=== PATIENT | female | born 1995 | race Caucasian/White ===

== ENCOUNTER 2019-10-21 17:51 | Emergency (ER) | payer OTHER, MEDICAID, SELFPAY ==
[2019-10-21 18:00] VITALS: BP 124/79; PULSE 104; RESP 20; TEMP 36.7; O2SAT 98
--- NOTE | 2019-10-21 18:14 | ED.GENADULT ---
HPI - General Adult General Chief complaint: Abdominal Pain Stated complaint: abdominal pain Time Seen by Provider: 10/21/19 18:05 Source: patient Mode of arrival: Ambulatory Limitations: no limitations History of Present Illness HPI narrative: 24-year-old female here for evaluation of midline lower abdominal pain for the past 4 days and also vaginal discharge. She states that has been going on for the past 4 days. Her last menstrual cycle was approximately 10 days ago. No urinary symptoms. No change in bowel habits. No vaginal bleeding. Hasn't tried anything for symptoms prior to arrival Review of Systems Constitutional Constitutional: Denies fever(s) Cardiovascular Cardiovascular: Denies chest pain and Denies dyspnea Respiratory Respiratory: Denies dyspnea Gastrointestinal Gastrointestinal: Reports abdominal pain, Denies change in stool character, Denies nausea and Denies vomiting Genitourinary Genitourinary: Denies urinary frequency, Denies dysuria and Reports vaginal discharge Musculoskeletal Musculoskeletal: Denies myalgias and Denies arthralgias Integumentary/Breasts Skin/Breast: Denies lesions and Denies rash Neurologic Neurologic: Denies behavioral changes Psychiatric Psychiatric: Denies behavioral changes Hematologic/Lymphatic Hematologic/Lymphatic: Denies easy bleeding and Denies easy bruising Patient History Medical History Patient denies medical problems (Acute) Social History Smoking Status: Current every day smoker Smoking Status: Current every day smoker Exam Initial Vital Signs Initial Vital Signs: Vital Signs Temperature 98.0 F 10/21/19 18:00 Pulse Rate 104 H 10/21/19 18:00 Respiratory Rate 20 10/21/19 18:00 Blood Pressure 124/79 10/21/19 18:00 Pulse Oximetry 98 10/21/19 18:00 Const General: cooperative, comfortable and well developed [facility] Head: normal to inspection and normocephalic Resp Effort & Inspection: normal respiratory effort Cardio Rate: regular rate GI Inspection: non-distended Palpation: soft, No firm, No guarding and tender (Suprapubic) External Female Exam: no erythema and no tenderness externally Speculum Exam - Vagina: not erythematous Speculum Exam - Cervix: normal appearance of the cervix, no lesions and other (IUD strings visualized) Skin Lesions: no lesions Rashes: no rashes Neuro General: alert and awake Cognition: normal cognition Extrem General: normal to inspection and capillary refill normal Course Orders Ordered: ED Orders 10/21/19 18:32 BHAVESH Prep Stat Wet Prep Tric BV Beronica Stat Vital Signs Vital signs: Vital Signs - 8 hr 10/21/19 18:00 10/21/19 20:20 Temperature 98.0 F Pulse Rate 104 H 71 Respiratory Rate 20 16 Blood Pressure 124/79 122/72 Pulse Oximetry 98 99 Medical Decision Making Lab Data Lab results reviewed: Yes I reviewed the patient's lab results. Labs: Point of Care Testing Test Results Negative Urine Dip Bedside Urine Glucose Negative Bedside Urine Bilirubin - Negative Bedside Urine Ketone - Negative Urine Specific [place] 1.015 Bedside Urine Occult Blood - Negative Bedside Urine pH 6.5 Bedside Urine Protein - Negative Bedside Urine Urobilinogen - Negative Bedside Urine Nitrite - Negative Bedside Urine Leukocytes - Negative Esterase Point of care testing: Point of Care Testing Test Results Negative Urine Dip Bedside Urine Glucose Negative Bedside Urine Bilirubin - Negative Bedside Urine Ketone - Negative Urine Specific [place] 1.015 Bedside Urine Occult Blood - Negative Bedside Urine pH 6.5 Bedside Urine Protein - Negative Bedside Urine Urobilinogen - Negative Bedside Urine Nitrite - Negative Bedside Urine Leukocytes - Negative Esterase MDM Narrative Medical decision making narrative: test is negative, urinalysis unremarkable, BHAVESH and wet prep negative. Has a benign abdominal exam. Will hold on further workup for now. Discussed return precautions and follow-up instructions with the patient. No indication for antibiotics. She expressed understanding and agreement plan. Discharge Plan Departure Patient Disposition: Home Clinical Impression: Vaginal discharge Abdominal pain Qualifiers: Abdominal location: lower abdomen, unspecified Qualified Code(s): R10.30 - Lower abdominal pain, unspecified Discharge Date/Time: 10/21/19 20:21 Instructions: DI for Abdominal Pain-Adult Activity Restrictions/Additional Instructions: Recommend you contact your primary provider for a follow-up. Continue all of your medications. Return to the emergency department for any new or worsening symptoms.
[2019-10-21 20:20] VITALS: BP 122/72; PULSE 71; RESP 16; O2SAT 99
== END 2019-10-21 20:21 | disposition home or self-care (01) ==
PROVIDERS: Emergency Provider Emergency Medicine
DX: N89.8 Other specified noninflammatory disorders of vagina (principal); R10.30 Lower abdominal pain, unspecified
CPT/HCPCS: 81003; 81025; 87210; 87220; 99282

== ENCOUNTER → 2020-11-04 10:43 | Outpatient (CLI) | payer OTHER, MEDICAID, SELFPAY ==
--- NOTE | 2020-11-04 | DI.US.S_ITS ---
PROCEDURE: US OB >= 14 WEEKS FETUS INDICATIONS: 20 WEEK ANATOMICAL SURVEY OUTSIDE/PRIOR DATING DATA: Last menstrual period (LMP): 06/19/2020. LMP-based estimated date of delivery (LEIDA): 03/26/2021 . First dating scan (date and location): 11/04/2020 Estimated date of delivery (LEIDA) from first dating scan: 03/26/2021 . TECHNIQUE: Real-time scanning was performed of the fetus, with image documentation and biometric measurements. Endovaginal scanning: No COMPARISON: [facility] Ultrasound, US, US OB < 14 WEEKS + OB TRANSVAG, 09/10/2020, 12:56. FINDINGS: General: A single living intrauterine gestation is present. Presentation: Vertex. Placenta: Placental position is posterior , without previa. Amniotic fluid index: 10.1 cm cm, normal range is 5-24 cm. heart rate: 165 beats per minute. Maternal cervical canal: 4.6 cm long. Normal lower limit is 2.5 cm. biometrics: Biparietal diameter: 19 weeks 5 days Head circumference: 19 weeks 2 days Abdominal circumference: 19 weeks 3 days Femur length: 20 weeks 4 days Estimated gestational age from initial scan: 19 weeks 5 days Composite gestational age from present scan: 19 weeks 5 days Estimated weight and percentile: 319 g, 56 percentile Measurement variability for biometric dating: +/- 7 days from 14 weeks to 15 weeks 6 days gestation, +/- 10 days from 16 weeks to 21 weeks 6 days gestation, +/- 2 weeks from 22 weeks to 27 weeks 6 days gestation, +/- 3 weeks for 28 weeks gestation or later. weight reference: 4500 g or EFW >90/95% is considered macrosomia or large for gestational age. EFW <10% is small for gestational age. EFW 5% or less is considered intra-uterine growth restriction. Anatomic survey: Neuro: Ventricles are non-dilated at less than 10 mm. Cisterna magna is normal at 3-11 mm. Cerebellum is normal in size and morphology. Nuchal skin fold: Normal at less than 6 mm between 14-21 weeks gestational age. Face: Nose and lips, facial profile are normal. Spine: No evidence for spina bifida. Heart: 4-chambered heart is present, with normal ventricular outflow tracts. Diaphragm: Diaphragm is intact. Stomach: Left-sided stomach is present. Kidneys: No hydronephrosis. Normal is less than 5 mm in 2nd trimester, less than 7 mm in 3rd trimester. Cord: 3-vessel cord has orthotopic insertion. Bladder: Normal in size. Extremities: All 4 extremities identified. IMPRESSION: 1. Normal interval growth. 2. Normal anatomic survey. Dictated by: Jeffry MARINO Interpreted: James Sheldon MD on 11/04/2020 at 13:51 Approved by: James Sheldon M.D. on 11/04/2020 at 16:39
== END ==
PROVIDERS: Referring Provider Nurse Practitioner Obstetrics & Gynecology; Visit Provider Nurse Practitioner Obstetrics & Gynecology
DX: Z34.92 Encounter for supervision of normal pregnancy, unspecified, second trimester (principal); Z36.89 Encounter for other specified antenatal screening; Z3A.19 19 weeks gestation of pregnancy
CPT/HCPCS: 76811

== ENCOUNTER → 2020-12-29 07:04 | Outpatient (CLI) | payer OTHER, MEDICAID, SELFPAY ==
[2020-12-29 08:27] LABS: Glucose Fasting 81 mg/dL (70-100)
[2020-12-29 09:41] LABS: Glucose Tol Interpretation INTERPRETATION
--- NOTE | 2020-12-29 09:44 | DI.US.S_ITS ---
PROCEDURE: US OB LIMITED INDICATIONS: Cervical length/ LAB OUTSIDE/PRIOR DATING DATA: Last menstrual period (LMP): 06/19/20. LMP-based estimated date of delivery (LEIDA): 03/26/21 . First dating scan (date and location): 11/04/20 . Estimated date of delivery (LEIDA) from first dating scan: 03/16/21 . TECHNIQUE: Real-time scanning was performed of the fetus, with image documentation. Endovaginal scanning: Not needed COMPARISON: None. FINDINGS: A single living intrauterine gestation is present. Presentation: Breech. Placenta: Placental position is posterior left , without previa. Amniotic fluid index: 16.0 cm, normal range is 5-24 cm. heart rate: 141 beats per minute. Maternal cervical canal: 5.1 cm long. Normal lower limit is 2.5 cm. Estimated gestational age from initial scan: 27 weeks 4 days . IMPRESSION: Reported pre term labor, breech presentation, placenta is posterior in positioning, leftward. Normal amniotic fluid volume. Maternal cervical canal at this time appears normal. Dictated by: Dong Renner M.D. on 12/29/2020 at 11:24 Approved by: Dong Renner M.D. on 12/29/2020 at 11:26
[2020-12-29 10:18] LABS: Hematocrit 30.1 % (36-46); Hemoglobin 10.2 g/dL (12.0-16.0); Mean Corpuscular Hemoglobin 28.7 PG (26-34); Mean Corpuscular Volume 84.5 fL (80-100); Platelet Count 221 X10^3/uL (150-400); Red Blood Cell Count 3.56 X10^6/uL (4.0-5.2); Red Cell Distribution Width 12.9 % (11.6-14.8); White Blood Cell Count 9.1 X10^3/uL (4.5-11.0)
[2020-12-29 10:35] LABS: Glucose 2 Hour 124 mg/dL (70-140)
[2020-12-29 10:35] LABS: Glucose 1 Hour 138 mg/dL (70-170)
== END ==
PROVIDERS: Referring Provider Nurse Practitioner Obstetrics & Gynecology; Visit Provider Nurse Practitioner Obstetrics & Gynecology
DX: Z36.86 Encounter for antenatal screening for cervical length (principal); Z13.1 Encounter for screening for diabetes mellitus; Z3A.27 27 weeks gestation of pregnancy
CPT/HCPCS: 36415; 76815; 76817; 82951; 82952; 85027

== ENCOUNTER → 2021-01-26 14:05 | Outpatient (CLI) | payer OTHER, MEDICAID, SELFPAY ==
--- NOTE | 2021-01-26 14:07 | DI.US.S_ITS ---
PROCEDURE: US OB LIMITED INDICATIONS: CERVICAL LENGTH OUTSIDE/PRIOR DATING DATA: Last menstrual period (LMP): 06/19/20. LMP-based estimated date of delivery (LEIDA): 03/26/21 . First dating scan (date and location): 11/04/20 . Estimated date of delivery (LEIDA) from first dating scan: 03/26/21 . TECHNIQUE: Real-time scanning was performed of the fetus, with image documentation. Endovaginal scanning: Not needed COMPARISON: [facility], OB LIMITED, 12/29/2020, 10:00. FINDINGS: A single living intrauterine gestation is present. Presentation: Breech. Placenta: Placental position is posterior left , without previa. Amniotic fluid index: 11.9 cm, normal range is 5-24 cm. heart rate: 158 beats per minute. Maternal cervical canal: 4.3 cm long. Normal lower limit is 2.5 cm. Estimated gestational age from initial scan: 31 weeks 4 days . IMPRESSION: Single living intrauterine gestation, normal maternal cervical length of 4.3 cm. Normal amniotic fluid volume. Breech presentation. Dictated by: Dong Renner M.D. on 01/26/2021 at 14:50 Approved by: Dong Renner M.D. on 01/26/2021 at 14:52
== END ==
PROVIDERS: Referring Provider Nurse Practitioner Obstetrics & Gynecology; Visit Provider Nurse Practitioner Obstetrics & Gynecology
DX: Z36.86 Encounter for antenatal screening for cervical length (principal); Z3A.31 31 weeks gestation of pregnancy
CPT/HCPCS: 76815

== ENCOUNTER 2021-02-05 17:58 | Outpatient (CLI) | payer OTHER, MEDICAID, SELFPAY ==
--- NOTE | 2021-02-05 18:24 | DI.US.S_ITS ---
PROCEDURE: US OB LIMITED INDICATIONS: PTL OUTSIDE/PRIOR DATING DATA: Last menstrual period (LMP): 06/19/2020. LMP-based estimated date of delivery (LEIDA): 03/26/2021. First dating scan (date and location): 11/04/2020 at [facility]. Estimated date of delivery (LEIDA) from first dating scan: 03/26/2021. TECHNIQUE: Real-time scanning was performed of the fetus, with image documentation. Endovaginal scanning: Performed for better visualization of the cervix. COMPARISON: [facility], , OB LIMITED, 01/26/2021, 14:19. FINDINGS: A single living intrauterine gestation is present. Presentation: Vertex Placenta: Placental position is left posterior, without previa. Amniotic fluid index: 11.4 cm, normal range is 5-24 cm. Largest pocket is 4.5 cm. heart rate: 141 beats per minute. Maternal cervical canal: 3.9 cm long. Normal lower limit is 2.5 cm. Estimated gestational age from initial scan: 33 weeks 0 days. IMPRESSION: Single live intrauterine with vertex positioning. Cervix measures 3.9 cm in length. Amniotic fluid index 11.4 cm. Dictated by: Steven Alcantara M.D. on 02/05/2021 at 19:19 Approved by: Steven Alcantara M.D. on 02/05/2021 at 19:22
--- NOTE | 2021-02-05 18:41 | PM.OBTRLD ---
Visit Information Visit Information Date of evaluation: 02/05/21 Primary OB Provider: Maya Stauffer On-call OB Provider: Iveth Barrett Reason for Evaluation: Yes pre-term labor Comments/Additional reasons for admission: 25YO @ 33wks here for evaluation of contractions and leaking of clear fluid. Noticed leaking fluid a few hours ago and then on the hour car ride here, noticed consistent, uncomfortable contractions. Has had pelvic pain x 2-3 days, but was trying to ignore it. No VB. First was @ 35wks and second at 38wks. Vital Signs Vital Signs: BP 122/65, HR 111bpm, T 36.2C Temporal PFSH Medical History (Updated 02/05/21 @ 19:38 by Maya Stauffer CNM) Patient denies medical problems Surgical History (Updated 02/05/21 @ 18:50 by Maya Stauffer CNM) History of appendectomy Social History Smoking Status: Current every day smoker Review of Systems Review of Systems ROS: Yes All systems reviewed with the patient and are negative except as otherwise documented Exam Vital Signs (past 8 hours): see above Presentation: vertex Objective Imaging CL US: My impression: Vertex CL-3.9cm, no funneling. Last CL @ 31wks was 4.3cm Radiologist's impression: see Report Evaluation Evaluation Baseline heart rate: 140 Variability: Moderate (11-25) monitor accelerations: Present Monitor Decelerations: Absent Contraction Frequency (minutes): 2 Uterine Contraction Intensity: Mild Status: Category l Cervical dilation (cm): 0 Cervical effacement (%): 20 Non-invasive Membranes Rupture Test: negative Diagnosis, Plan/Disposition Final Diagnosis (1) History of delivery, currently in third trimester: Status: Acute (2) contractions: Status: Acute Problem details: Mild, regular contractions spaced with nifedipine x3 doses. Given stable cervical length and negative fFN, there is low concern for labor tonight. D/C to home w/ routine labor precautions. Consulted who is in agreement w/ POC. (3) Encounter for suspected problem with amniotic cavity and membrane not found: Status: Acute Problem details: Reassurance given of no PPROM. D/C to home w/ routine labor/ROM precautions.
[2021-02-05] MEDS: NIFEdipine 10 MG CAPSULE PO ×3 (18:43→19:22)
[2021-02-05 19:08] LABS: Fetal Fibronectin Negative
== END 2021-02-05 19:55 | disposition home or self-care (01) ==
LOC: LABOR 18:07 → OB 02-06 09:31
PROVIDERS: Referring Provider Nurse Practitioner Obstetrics & Gynecology; Visit Provider Nurse Practitioner Obstetrics & Gynecology
DX: Z03.71 Encounter for suspected problem with amniotic cavity and membrane ruled out (principal); O47.03 False labor before 37 completed weeks of gestation, third trimester; Z3A.33 33 weeks gestation of pregnancy
CPT/HCPCS: 59025; 59050; 76815; 82731; 84112; G0378; G0379

== ENCOUNTER 2021-02-15 18:50 | Observation (INO) | payer OTHER, MEDICAID, SELFPAY ==
--- NOTE | 2021-02-15 19:33 | PM.OBTRLD ---
Visit Information Visit Information Date of evaluation: 02/15/21 Primary OB Provider: Mirtha Lockhart On-call OB Provider: Maya Stauffer Reason for Evaluation: Yes pre-term labor Comments/Additional reasons for admission: 25YO @ 34wks 3 days, based on LMP concordant w/ 10wk US, here for evaluation of contractions and leaking of clear fluid. Noticed leaking fluid a few hours ago and then on the hour car ride here, noticed stronger consistent, uncomfortable contractions. Had a negative fFN w/ stable cervical length on 02/05/21 during evaluation for the same. Has nifedipine XR at home, but hasn't taken it since last Tuesday. Has been feeling flushed w/ no appetite today, minimal intake. No VB. First was @ 35wks and second at 38wks. Vital Signs Vital Signs: BP 121/70, HR 126, RR 18/min, T 98.3F Temporal PFSH Medical History Patient denies medical problems Surgical History History of appendectomy Social History Smoking Status: Current every day smoker Review of Systems Review of Systems ROS: Yes All systems reviewed with the patient and are negative except as otherwise documented Exam Vital Signs (past 8 hours): see above Objective Labs Labs: GBS PCR-negative Evaluation Evaluation Baseline heart rate: 140 Variability: Moderate (11-25) monitor accelerations: Present Monitor Decelerations: Absent Contraction Frequency (minutes): 2 Uterine Contraction Intensity: Mild Category of Tracing: Reactive Cervical dilation (cm): 1 Cervical effacement (%): 50 station: -3 Non-invasive Membranes Rupture Test: negative Comments: 1L LR IVFB given After 2 hours, CE is unchanged and contractions have spaced. Diagnosis, Plan/Disposition Final Diagnosis (1) contractions: Status: Acute Problem details: Mild, regular contractions spaced with IV fluids. Given no change in cervical exam after 2 hours, there is low concern for labor tonight. D/C to home w/ routine labor precautions. (2) Encounter for suspected problem with amniotic cavity and membrane not found: Status: Acute Problem details: Reassurance given of no PPROM. D/C to home w/ routine labor/ROM precautions. Plan/Disposition Plan: Follow-up in clinic this week. OB Disposition: home
[2021-02-15] MEDS: LACTATED RINGERS 1,000 ML 500 ML IV (20:50)
[2021-02-15 21:00] LABS: Strep Grp B PCR NEG for Grp B Strep
== END 2021-02-15 21:54 | disposition home or self-care (01) ==
PROVIDERS: Admitting Provider Nurse Practitioner Obstetrics & Gynecology; Referring Provider Nurse Practitioner Obstetrics & Gynecology; Visit Provider Nurse Practitioner Obstetrics & Gynecology
DX: Z03.71 Encounter for suspected problem with amniotic cavity and membrane ruled out (principal); O47.03 False labor before 37 completed weeks of gestation, third trimester; Z3A.34 34 weeks gestation of pregnancy
CPT/HCPCS: 59025; 59050; 84112; 87081; 87653; 96360; G0378; G0379

== ENCOUNTER → 2021-02-17 16:37 | Outpatient (ROUT) | payer OTHER, MEDICAID, SELFPAY | PROVIDERS: Visit Provider Nurse Practitioner Obstetrics & Gynecology | DX: Z34.93 Encounter for supervision of normal pregnancy, unspecified, third trimester (principal); Z3A.34 34 weeks gestation of pregnancy; Z36.85 Encounter for antenatal screening for Streptococcus B | CPT/HCPCS: 87081 ==

== ENCOUNTER 2021-02-24 18:18 | Outpatient (CLI) | payer OTHER, MEDICAID, SELFPAY ==
--- NOTE | 2021-02-24 18:33 | P.TNLD_ITS ---
Visit Information Visit Information Date of evaluation: 02/24/21 Primary OB Provider: Maya Stauffer On-call OB Provider: Iveth Barrett Reason for Evaluation: Yes rule out labor Comments/Additional reasons for admission: 25YO @ 35wks 5days, based on LMP and concordant w/ 10wk US, here for evaluation of contractions, pelvic pressure and pain. Has been stewart all day w/ contractions that became Q2 minutes and occasionally strong. Contractions spaced on the car ride here, but strength is the same. No VB or LOF, though she has has a lot of mucus discharge. Not sleeping well and incredibly nauseous today. Nausea is only mildly improved w/ ondansetron. Extremely frustrated with contractions and hoping to stay and have a baby or encourage labor. Hx of 35wk (P1) and 38 wk(P2) births. [facility] Medical History Patient denies medical problems Surgical History History of appendectomy Social History Smoking Status: Current every day smoker Review of Systems Review of Systems ROS: Yes All systems reviewed with the patient and are negative except as otherwise documented Exam Presentation: vertex Other: by Demetrius's and CE Evaluation Evaluation Baseline heart rate: 125 Variability: Moderate (11-25) Monitor Decelerations: Absent Uterine Contraction Intensity: Mild Cervical dilation (cm): 2 Cervical effacement (%): 75 station: -2 Comments: Initial CE unchanged from last clinic exam on 02/17/21 CE @ 1930 2/75%/-2 Diagnosis, Plan/Disposition Plan/Disposition Plan: Recommended 2 hour observation, but patient declined. Counseled on late status and that it is not medically appropriate to help labor along at this time. Encouraged her to call or come back if things intensify in any way. OB Disposition: home
== END 2021-02-24 19:48 | disposition home or self-care (01) ==
LOC: LABOR 19:04 → OB 02-25 07:18
PROVIDERS: Referring Provider Nurse Practitioner Obstetrics & Gynecology; Visit Provider Nurse Practitioner Obstetrics & Gynecology
DX: O47.03 False labor before 37 completed weeks of gestation, third trimester (principal); Z3A.35 35 weeks gestation of pregnancy
CPT/HCPCS: 59025; 59050; G0378; G0379

== ENCOUNTER 2021-02-27 15:59 | Outpatient (CLI) | payer OTHER, MEDICAID, SELFPAY ==
--- NOTE | 2021-02-27 16:25 | PM.OBTRLD ---
Visit Information Visit Information Date of evaluation: 02/27/21 Primary OB Provider: Maya Stauffer On-call OB Provider: Vilma Elizondo Reason for Evaluation: Yes other Comments/Additional reasons for admission: 25YO @ 36wks 1day, based on LMP and concordant w/ 10wk US, here for evaluation of nausea, suspected dehydration and constipation w/ continued contractions. Lots of FM and Q2-3 minute mild contractions. No VB or LOF. Performed a home enema before coming in and was able to pass a small amount of stool and doesn't feel as constipated as before. Has been evaluates several times, starting at 33wks for contractions. Last cervical exam on 02/24/21 was 2/75%/-3. Vital Signs Vital Signs: BP 112/70, HR 114bpm, T 98.0F Temporal PFSH Medical History Patient denies medical problems Surgical History History of appendectomy Social History (Updated 02/27/21 @ 17:08 by Maya Stauffer CNM) marital status: unmarried,living together number of children: 2 household members: significant other and children lives independently: Yes caregiver/support person: No housing: house occupational status: employed Smoking Status: Former smoker alcohol intake: former substance use type: does not use Review of Systems Review of Systems ROS: Yes All systems reviewed with the patient and are negative except as otherwise documented Exam Vital Signs (past 8 hours): see above Resp Effort & Inspection: normal respiratory effort Auscultation: clear to auscultation bilaterally Cardio Rate: tachycardic Rhythm: regular rhythm Heart Sounds: S1 normal and S2 normal Presentation: vertex Evaluation Evaluation Baseline heart rate: 140 Variability: Moderate (11-25) monitor accelerations: Present Monitor Decelerations: Absent Contraction Frequency (minutes): 6 Uterine Contraction Intensity: Mild Category of Tracing: Reactive Status: Category l Cervical dilation (cm): 2 Cervical effacement (%): 75 station: -3 Diagnosis, Plan/Disposition Final Diagnosis (1) contractions: Status: Acute Problem details: Mild, regular contractions spaced with rest and IV fluids. Given no change in cervical exam since last exam, there is low concern for labor tonight. D/C to home w/ routine labor precautions. (2) Dehydration during : Status: Acute Problem details: tachycardia and urine output improved w/ /IV fluids. Discharge to home w/ recommendations to increase PO fluid and use medication for nausea PRN. D/C/ to home. Plan/Disposition OB Disposition: home
[2021-02-27 16:59] LABS: Appearance Urine UA CLEAR; Bilirubin Urine UA NEGATIVE (NEGATIVE); Color Urine UA YELLOW; Glucose Urine UA NEGATIVE (Negative); Ketones Urine UA 1+ (NEGATIVE); Leukocyte Esterase Urine UA TRACE (NEGATIVE); Nitrite Urine UA NEGATIVE (Negative); Occult Blood Urine UA 3+ (Negative); Protein Urine UA 2+ (Negative); Urobilinogen Urine UA 0.2 E.U./dL (0.2)
[2021-02-27] MEDS: LACTATED RINGERS 1,000 ML 1000 ML IV (17:00)
[2021-02-27 17:24] LABS: Bacteria Urine Many (>30); Hyaline Casts Urine 1-5/LPF; RBC Urine 5-10/HPF (0-5/HPF); Renal Epithelial Cells Urine 0-1/HPF (0-1/HPF); Squamous Epithelial Cell Urine 1-5 /HPF (0-5/HPF); Transitional Epi Cells Urine 0-1/HPF (0-5/HPF); WBC Urine 5-10/HPF (0-5/HPF); pH Urine UA 6.5 (4.5-8.0)
[2021-02-27 17:25] LABS: Culture Indicated Urine Specimen Cultured; Mucus Urine 1+ (Negative)
== END 2021-02-27 18:20 | disposition home or self-care (01) ==
LOC: LABOR 17:01 → OB 03-02 08:06
PROVIDERS: Referring Provider Nurse Practitioner Obstetrics & Gynecology; Visit Provider Nurse Practitioner Obstetrics & Gynecology
DX: O47.03 False labor before 37 completed weeks of gestation, third trimester (principal); O26.893 Other specified pregnancy related conditions, third trimester; E86.0 Dehydration; Z3A.36 36 weeks gestation of pregnancy
CPT/HCPCS: 81003; 81015; 87086; G0378; G0379

== ENCOUNTER 2021-03-10 19:49 | Outpatient (CLI) | payer OTHER, MEDICAID, SELFPAY ==
--- NOTE | 2021-03-10 20:01 | PM.OBTRLD ---
Visit Information Visit Information Date of evaluation: 03/10/21 Primary OB Provider: Maya Stauffer On-call OB Provider: Kenton Salazar Reason for Evaluation: Yes rule out labor Comments/Additional reasons for admission: 25YO @ 37wks 5days, based on LMP and concordant w/ 10wk US, here for evaluation of regular contractions x several hours w/ new onset LLQ pain that worsens w/ movement and contractions and subsides between them. Lots of FM and Q4-5 minute mild contractions. No VB or LOF. PFSH Medical History Patient denies medical problems Surgical History History of appendectomy Social History marital status: unmarried,living together number of children: 2 household members: significant other and children lives independently: Yes caregiver/support person: No housing: house occupational status: employed Smoking Status: Former smoker alcohol intake: former substance use type: does not use Review of Systems Review of Systems ROS: Yes All systems reviewed with the patient and are negative except as otherwise documented Exam Vital Signs (past 8 hours): BP 117/65, HR 120bpm, T 36.6C Temporal Presentation: vertex Evaluation Evaluation Baseline heart rate: 155 Variability: Moderate (11-25) monitor accelerations: Present Monitor Decelerations: Absent Uterine Contraction Intensity: Mild Status: Category l Cervical dilation (cm): 3 Cervical effacement (%): 50 station: -3 Diagnosis, Plan/Disposition Final Diagnosis (1) False labor after 37 completed weeks of gestation: Status: Acute Problem details: Contraction spaced to occasional only over 1 hour of monitoring. Given minimal contraction pattern, comfort measures discussed and pt discharge to home w/ routine precautions. Elective 39wk IOL confirmed for 03/19/21. Encouragement and emotional support given.
[2021-03-10] MEDS: CALCIUM CARBONATE 500 MG TAB 1000 MG PO (20:51)
== END 2021-03-10 21:10 | disposition home or self-care (01) ==
LOC: OB 03-11 07:39
PROVIDERS: Referring Provider Nurse Practitioner Obstetrics & Gynecology; Visit Provider Nurse Practitioner Obstetrics & Gynecology
DX: O47.1 False labor at or after 37 completed weeks of gestation (principal); Z3A.37 37 weeks gestation of pregnancy
CPT/HCPCS: 59025; G0378; G0379

== ENCOUNTER 2021-03-14 18:06 | Inpatient (IN) | payer OTHER, MEDICAID, SELFPAY ==
--- NOTE | 2021-03-14 18:10 | PM.OBHP.1 ---
OB HPI Date/Time Date of admission: 03/14/21 Date Patient Seen: 03/14/21 Time Patient Seen: 18:10 History of Present Condition Chief complaint: Eval of Labor : 3 Para: 2 Estimated Date of Delivery: 03/26/21 Estimated Gestational Age (weeks): 38.2 Narrative: Alyson Kaiser is a 26 year old female @[id number] by LMP and 10wk US who presents for evaluation of labor. Has been feeling regular contractions since 3pm that have gotten progressively stronger. No VB or LOF. Desires epidural. Also c/o knee pain and desires Tylenol now. Lots of FM. Full PN care w/ CNM. complictaed by anemia and contractions since 33wks. CE was 3cm in clinic yesterday. FOB present and supportive. History of Present care: good care, initiated at week # (10) and number of visits Dating criteria: LMP confirmed by 1st trimester US Ultrasounds: normal mid trimester US Obstetrical complications: none Medical complications: none Preadmission Labs Blood type: O (+) positive -: Antibody screen: negative, GBS status: negative, HBsAG: negative, HIV: negative and RPR/VDLR: negative -: Chlamydia screen: not detected and Gonorrhea screen: not detected -: Rubella: immune HCAB: negative Cell-free DNA: Negative/female Narrative: 2hr gtt: 81/138/124 Prior (ies) History: 04/28/2017- NSVB @ 59ssq5d, 5#10oz, male, epidural, 1st degree 12/24/2018- NSVB @ 38wks, 6#13oz, female, epidural, partial abruption, delayed PPH w/ D&C Evaluation Evaluation Baseline heart rate: 140 Variability: Moderate (11-25) monitor accelerations: Present Monitor Decelerations: Absent Contraction Frequency (minutes): 3 Uterine Contraction Intensity: Moderate Status: Category l Cervical dilation (cm): 4 Cervical effacement (%): 75 station: -2 PFSH Medical History Patient denies medical problems Surgical History History of appendectomy Social History marital status: unmarried,living together number of children: 2 household members: significant other and children lives independently: Yes caregiver/support person: No housing: house occupational status: employed Smoking Status: Former smoker alcohol intake: former substance use type: does not use Meds Home Medications and Allergies Home Medications Medication Instructions Recorded Confirmed Type No Known Home Medications 03/10/21 03/10/21 History Allergies Allergy/AdvReac Type Severity Reaction Status Date / Time No Known Drug Allergies Allergy Verified 03/10/21 20:04 Review of Systems Review of Systems ROS: Yes All systems reviewed with the patient and are negative except as otherwise documented Exam Vital Signs (past 8 hours): Chest Chest: normal inspection of the chest Resp Effort & Inspection: normal respiratory effort Auscultation: clear to auscultation bilaterally Cardio Rate: regular rate Rhythm: regular rhythm Heart Sounds: S1 normal and S2 normal Presentation: vertex Assessment and Plan Assessment and Plan Assessment and Plan narrative: A: Term active labor Anemia Increased risk of PPH No indication for GBS prophylaxis Cat I FHR P: Admit, routine orders w/ epidural HEYDI. Labor support PRN. Reassess after epidural.
[2021-03-14 19:22] VITALS: BP 123/79
[2021-03-14] MEDS: ACETAMINOPHEN 325 MG TABLET 975 MG PO (19:23)
[2021-03-14 19:33] LABS: Add Manual Diff / Slide Review NO; Basophils Absolute Auto 100 /uL (0-100); Eosinophils Absolute Auto 100 /uL (0-450); Eosinophils Percent Auto 0.5 % (2-4); Hematocrit 34.1 % (36-46); Hemoglobin 11.1 g/dL (12.0-16.0); Lymphocytes Absolute Auto 2200 /uL (1100-4500); Lymphocytes Percent Auto 20.2 % (25-40); Mean Corpuscular HGB Conc 32.5 % (30-36); Mean Corpuscular Hemoglobin 24.6 PG (26-34); Mean Corpuscular Volume 75.5 fL (80-100); Monocytes Absolute Auto 700 /uL (0-900); Monocytes Percent Auto 6.7 % (3-14); Neutrophils Absolute Auto 7700 /uL (1500-7000); Neutrophils Percent Auto 71.6 % (50-75); Platelet Count 236 X10^3/uL (150-400); Red Blood Cell Count 4.52 X10^6/uL (4.0-5.2); Red Cell Distribution Width 15.2 % (11.6-14.8); White Blood Cell Count 10.8 X10^3/uL (4.5-11.0)
[2021-03-14 20:03] LABS: COVID19 - ADMIT (NP swab/PCR) Negative (Negative)
[2021-03-14] MEDS: LACTATED RINGERS 1,000 ML 100 ML IV (21:45)
[2021-03-14] MEDS: CALCIUM CARBONATE 500 MG TAB 1000 MG PO (22:43)
[2021-03-14] MEDS: OXYTOCIN PREMIX 30 UNIT/500 ML PLAST..BAG IV (22:56)
--- NOTE | 2021-03-14 22:56 | PM.OBPNLAB ---
Date/Time Date Patient Seen: 03/14/21 Time Patient Seen: 22:56 Pain Control Pain control: epidural Comments: Minimal pain relief w/ 1st epidural placement around 1939. Epidural was replaced at 2139 and Alyson now has good pain relief. Pelvic Exam Dilation (cm): 6 Effacement (%): 80 station: -2 Amniotic membrane status: Leaking Comments: AROM for moderate clear fluid @ 1999. Contractions Contractions on admission: regular Contraction frequency (min): 3 Contraction duration (min): 1 Contraction pattern: Regular Contraction intensity: Moderate Status status: Category l Heart Rate Baseline: 125 Monitor Accelerations: Present Monitor Decelerations: Absent Monitor Variability: Moderate Assessment and Plan Assessment: active labor Plan: begin patient augmentation Comments: Pitocin, per protocol. Reassess in 4 hours or sooner, PRN.
[2021-03-15] MEDS: LACTATED RINGERS 1,000 ML 100 ML IV (01:16)
[2021-03-15] MEDS: miSOPROStoL 200 MCG TABLET 400 MCG SL (01:22)
--- NOTE | 2021-03-15 01:27 | PM.OBPRVD ---
Events: Labor Augmentation Labor & Delivery Delivery date: 03/15/21 Intrapartal Events: None Delivery augmentation: rupture of membranes and pitocin Delivery monitor: external FHT and external uterine Route of delivery: L&D Laceration Description: None Estimated blood loss (mL): 300 Anesthesia Type: Epidural Narrative: Called by RN @ 0036 for patient report of increasing rectal pressure,. Alyson was checked and found to be C/C/+2. Alyson pushed effectively and was coached only to slow descent. NSVB of a vigorous baby girl in BHAVESH position w/ a single loose nuchal cord reduced on the perineum. No additional maneuvers were needed for delivery of the shoulders. De Lancey was placed on maternal abdomen for drying and skin to skin. After 45 seconds of delayed cord clamping, the cord was double clamped by CNM and cut by FOB. Remaining 30 units of pitocin in 500mL LR was increased to 300mL/hr for AMTSL. Apgars 9/9. Cord traction and fundal massage led to assisted, Cadet delivery of an apparently intact, bilobed placenta, membranes and 3VC. Fundus immediately firm and bleeding minimal. Vagina and perineum inspected and intact. Initial QBL 300mL. Shortly after leaving the room, the RN notified CNM of heavy vaginal bleeding. Fundus was firm and bleeding again minimal, but an additional QBL of 250mL saturated the pads. Misoprostil 400mcg SL was given. Total QBL 550mL. Mother and baby as I left the room. [place]y Baby 1: Infant gender: Female Presentation: vertex Position: Left Occiput Anterior Placenta delivery description: Spontaneous Cord Vessel Description: 3 Vessels, Nuchal Cord and Loose score (1 min): 9 score (5 min): 9 weight: 3.4 kg Plan for aftercare: Routine care
[2021-03-15] MEDS: TRANEXAMIC ACID 1,000 MG in SODIUM CHLORIDE 0.9% 100 ML 200 ML IV (01:58)
[2021-03-15] MEDS: KETOROLAC 30 MG/ML VIAL IV (02:30)
[2021-03-15] MEDS: ACETAMINOPHEN 325 MG TABLET 650 MG PO ×2 (05:40→16:11)
[2021-03-15] MEDS: IBUPROFEN 600 MG TABLET PO ×2 (10:00→16:11)
[2021-03-15 16:37] VITALS: BP 123/79; PULSE 90; RESP 18; TEMP 36.7
--- NOTE | 2021-03-15 17:10 | PM.OBDS.1 ---
Discharge Providers Provider Date of admission: 03/14/21 18:06 Discharge Date: 03/15/21 Consults: 03/16/21 01:25 Consult to Section Hand Helper Routine Comment: Discharge provider: Maya Stauffer CNM Summary Discharge Diagnosis (1) Encounter for full-term uncomplicated delivery: Status: Acute Problem Details: Patient voiding and ambulating independently. Tolerating general diet. Pain well controlled w/ PO medications. Has decided to formula feed which she did with her previous 2 children. Lochia scant, no clots. Eager for discharge to home. Time Spent with Patient Time attestation: Total time spent providing and/or coordinating discharge services: Objective Labs Result Diagrams: 03/14/21 18:15 Labs: Laboratory Results - last 24 hr 03/14/21 03/14/21 03/14/21 18:15 18:15 18:15 WBC 10.8 RBC 4.52 Hgb 11.1 L Hct 34.1 L MCV 75.5 L MCH 24.6 L MCHC 32.5 RDW 15.2 H Plt Count 236 Neut % (Auto) 71.6 Lymph % (Auto) 20.2 L [place] % (Auto) 6.7 Eos % (Auto) 0.5 L Baso % (Auto) 1.0 Neut # (Auto) 7700 H Lymph # (Auto) 2200 [place] # (Auto) 700 Eos # (Auto) 100 Baso # (Auto) 100 SARS-CoV-2 (PCR) Negative Blood Type O Positive Antibody Screen Negative Exam Vital Signs (past 8 hours): - 03/15/21 16:37 Temperature 98.1 F Pulse Rate 90 Respiratory Rate 18 Blood Pressure 123/79 Other: Fundud firm @ U, lochia small, no clots, minimal edema, perineum intact Discharge Plan Discharge Plan Patient Disposition: Home Discharge orders & Medications Prescriptions: New ibuprofen 600 mg Tablet 600 mg PO Q6HR PRN (Reason: Pain, Mild (1-3)) 14 Days Qty: 60 RF: 0 acetaminophen 325 mg Tablet 650 mg PO Q6HR PRN (Reason: Pain, Mild (1-3)) 14 Days Qty: 60 RF: 0 No Action No Known Home Medications RF: 0 Medication counseling provided by Pharmacist: No Follow up/Referrals: Maya Stauffer CNM [[facility]] - (Follow-up 03/28 @ 1000 by Telehealth Follow-up 04/27 @ 1000 in office) Diet/Activity/Treatments Diet: Regular Activity: pelvic rest x 6 weeks Skin/Wound/Dressing Care Report to your healthcare provider any signs of infection, such as:: chills, fever, increased pain, unusual drainage and unusual redness Visit Report/Discharge Packet Stand Alone Forms: Discharge: Care
== END 2021-03-15 21:06 | disposition home or self-care (01) | DRG 560 ==
PROVIDERS: Admitting Provider Nurse Practitioner Obstetrics & Gynecology; Referring Provider Nurse Practitioner Obstetrics & Gynecology; Visit Provider Nurse Practitioner Obstetrics & Gynecology
DX: O99.02 Anemia complicating childbirth (principal); D64.9 Anemia, unspecified; O69.81X0 Labor and delivery complicated by cord around neck, without compression, not applicable or unspecified; Z3A.38 38 weeks gestation of pregnancy; Z37.0 Single live birth; Z20.822 Contact with and (suspected) exposure to COVID-19
CPT/HCPCS: 01967; 36415; 59050; 85025; 86850; 86900; 86901; 87635; C9803; G0379; J1885; J2590; S0191

== ENCOUNTER → 2021-04-30 12:46 | Outpatient (CLI) | payer OTHER, MEDICAID, SELFPAY ==
--- NOTE | 2021-04-30 | DI.US.S_ITS ---
PROCEDURE: US PELVIC COMPLETE INDICATIONS: 6 WEEKS POST ; HEAVY BLEEDING TECHNIQUE: Real-time scanning was performed of the pelvic organs, with image documentation. Additional endovaginal scanning was necessary due to incomplete visualization of the adnexal and endometrial structures by transabdominal scanning. COMPARISON: [facility], , [facility], 02/05/2021, 18:59. FINDINGS: Uterus: Uterus is normal in size at 10.0 x 5.9 x 8.0 cm. The endometrium measures 17.4 mm in combined thickness. There is a 2.9 x 1.7 x 2.2 cm irregular hyperechoic masslike area in the fundus of the endometrial cavity, demonstrating the vascularity. Ovaries: Right ovary measures 2.8 x 1.0 x 1.0 cm. Left ovary measures 2.7 x 1.0 x 1.8 cm. Ovaries are normal in echotexture. Other: No pathologic free abdominal or pelvic fluid. IMPRESSION: 1. There is a 2.9 x 1.7 x 2.2 cm irregular hyperechoic masslike area in the fundus of the endometrial cavity, which demonstrates no vascularity on Doppler ultrasound. Differential diagnosis include a clot versus retained products of conception. 2. Endometrium is thickened measuring 17.4 mm consistent with endometrial hyperplasia. The result was discussed with Maya Salgado. Dictated by: Johana Ogden M.D. on 04/30/2021 at 14:02 Approved by: Johana Ogden M.D. on 04/30/2021 at 14:36
== END ==
PROVIDERS: Referring Provider Nurse Practitioner Obstetrics & Gynecology; Visit Provider Nurse Practitioner Obstetrics & Gynecology
DX: O72.2 Delayed and secondary postpartum hemorrhage (principal); R93.89 Abnormal findings on diagnostic imaging of other specified body structures
CPT/HCPCS: 76830; 76856

== ENCOUNTER 2021-05-01 14:26 | Observation (INO) | payer OTHER, MEDICAID, SELFPAY ==
[2021-05-01] VITALS (7 sets, daily range): BP systolic 104–118; BP diastolic 64–83; PULSE 49–86; RESP 12–16; TEMP 36.4–37; O2SAT 99–100; BMI 28.1
--- NOTE | 2021-05-01 | PATH_ITS ---
[facility] Accession Number: [id number] . 01 Material submitted: . uterus - INTRAUTERINE CONTENTS . 02 Diagnosis: Intrauterine Contents: Products of conception with degenerative features. Background disordered proliferative endometrium. [facility] 05/06/2021 1551 Local . 02 Electronically signed: . Virginia Mirza MD, Pathologist NPI- [id number] . 01 Gross description: . The specimen is received in formalin, labeled intrauterine contents, and consists of multiple aburto-pink to red-brown fragments of soft tissue and clotted blood measuring 5.5 x 4.5 x 2.0 cm in aggregate. The specimen is entirely submitted in in cassettes A1-A6. ([id number]) /[facility] 05/02/2021 1349 Local . 02 Pathologist provided ICD-10: O02.1 . 02 CPT . 937011 Performed at: 01 [facility] Cytology [address] [facility], [place], [place] [id number] MD Maxwell Roche MD Phone: [phone] Performed at: 02 [facility] [address] [place], [place] [id number] MD Jacque Lane MD Phone: [phone]
[2021-05-01 15:24] LABS: Add Manual Diff / Slide Review NO; Basophils Absolute Auto 100 /uL (0-100); Basophils Percent Auto 1.2 % (0-2); Eosinophils Absolute Auto 100 /uL (0-450); Eosinophils Percent Auto 1.8 % (2-4); Hematocrit 35.9 % (36-46); Hemoglobin 11.6 g/dL (12.0-16.0); Lymphocytes Absolute Auto 2700 /uL (1100-4500); Mean Corpuscular HGB Conc 32.3 % (30-36); Mean Corpuscular Hemoglobin 24.7 PG (26-34); Mean Corpuscular Volume 76.6 fL (80-100); Monocytes Absolute Auto 400 /uL (0-900); Monocytes Percent Auto 5.2 % (3-14); Neutrophils Absolute Auto 5000 /uL (1500-7000); Neutrophils Percent Auto 59.8 % (50-75); Platelet Count 301 X10^3/uL (150-400); Red Blood Cell Count 4.68 X10^6/uL (4.0-5.2); Red Cell Distribution Width 18.9 % (11.6-14.8); White Blood Cell Count 8.3 X10^3/uL (4.5-11.0)
--- NOTE | 2021-05-01 15:25 | ED_ITS ---
HPI - Female Genitourinary General Chief complaint: Vaginal Bleeding Stated complaint: needs d&c Time Seen by Provider: 05/01/21 14:41 Source: patient Mode of arrival: Ambulatory Limitations: no limitations History of Present Illness HPI Narrative: 26-year-old female who delivered a healthy child vaginally 03/15/21 and has had ongoing heavy vaginal bleeding ever since. She reports bleeding through a super tampon every hour for quite some time. She is fatigued and generally weak but denies any specific dizziness or lightheadedness. She takes no blood thinners. She has no pain and denies any fever or chills. She was sent here by her call center assistant in preparation for a D&C. She last had any solids at about 8:00 a.m. this morning and some clear liquids at about 2:30 p.m. Related Data Allergies Allergy/AdvReac Type Severity Reaction Status Date / Time adhesive tape AdvReac Intermediate Hives Verified 05/01/21 14:47 Review of Systems Review of Systems Narrative: GENERAL: See HPI HEENT: Denies sinus pain, ear pain, sore throat, difficulty swallowing, dizziness. RESPIRATORY: Denies dyspnea, cough, wheezing, hemoptysis, sputum. CARDIOVASCULAR: Denies chest pain, palpitations, orthopnea, edema, GASTROINTESTINAL: Denies nausea, vomiting, abdominal pain, diarrhea, constipation, melena. : See HPI MUSCULOSKELETAL: denies weakness, joint pain, or bony pain SKIN: Denies rash, skin lesions, or other NEUROLOGIC: Denies weakness, headache, numbness, change in speech, confusion, seizures, incoordination. PSYCHIATRIC: No concerning psychosocial issues. 12 point review of systems is negative except for those stated above Patient History Medical History Patient denies medical problems Surgical History History of appendectomy alcohol intake frequency: holidays/special occasions only Substance Use Type: does not use Exam Narrative Exam Narrative: GEN: AOx3 and in mild distress EYES: Pupils are equal, round, and reactive to light and accommodation. Extraoccular muscles are intact bilaterally. There is no subconjunctival hemorrhage or exudate. CHEST: Lungs are clear to auscultation bilaterally and free of wheezes, rales, or rhonchi. Heart rate is regular rhythm, there are no murmurs, clicks, rubs, or gallops. There is no chest wall tenderness. ABD: Abdomen is soft and nontender. There is no guarding or rebound. Bowel sounds are normal in all 4 quadrants. There is no mass or organomegaly. EXT: Full painless ROM of all extremities with no loss of sensation or strength. SKIN: Warm, pink, and dry. No erythema or rash Initial Vital Signs Initial Vital Signs: Vital Signs Temperature 98.2 F 05/01/21 14:43 Pulse Rate 86 05/01/21 14:43 Respiratory Rate 16 05/01/21 14:43 Blood Pressure 111/70 05/01/21 14:43 Pulse Oximetry 100 05/01/21 14:43 Course Orders Ordered: ED Orders 05/01/21 15:07 COVID19 - ADMIT (LEATHER POLISHER swab/PCR) Stat 05/01/21 15:15 Basic Metabolic Panel Stat Complete Blood Count AUTO DIFF Stat Type and Screen Stat Consultations Consultation #1: Dr. Barrett is calling the OR crew in preparation for a D&C this evening Vital Signs Vital signs: Vital Signs - 8 hr 05/01/21 14:43 Temperature 98.2 F Pulse Rate 86 Respiratory Rate 16 Blood Pressure 111/70 Pulse Oximetry 100 MDM - Female Genitourinary Lab Data Result diagrams: 05/01/21 15:15 05/01/21 15:15 Labs: Lab Results 05/01/21 05/01/21 Range/Units 15:15 15:15 WBC 8.3 (4.5-11.0) X10^3/uL RBC 4.68 (4.0-5.2) X10^6/uL Hgb 11.6 L (12.0-16.0) g/dL Hct 35.9 L (36-46) % MCV 76.6 L (80-100) fL MCH 24.7 L (26-34) PG MCHC 32.3 (30-36) % RDW 18.9 H (11.6-14.8) % Plt Count 301 (150-400) X10^3/uL Neut % (Auto) 59.8 (50-75) % Lymph % (Auto) 32.0 (25-40) % [place] % (Auto) 5.2 (3-14) % Eos % (Auto) 1.8 L (2-4) % Baso % (Auto) 1.2 (0-2) % Neut # (Auto) 5000 (5725-3249) /uL Lymph # (Auto) 2700 (3829-3626) /uL [place] # (Auto) 400 (0-900) /uL Eos # (Auto) 100 (0-450) /uL Baso # (Auto) 100 (0-100) /uL Sodium 139 (137-145) mmol/L Potassium 4.0 (3.4-5.1) mmol/L Chloride 106 (98-107) mmol/L Carbon Dioxide 25 (22-32) mmol/L BUN 16 (7-17) mg/dL Creatinine 0.80 (0.52-1.04) mg/dL Estimated GFR > 60.0 (>60) mL/min BUN/Creatinine Ratio 20.0 (6-22) Glucose 86 (70-100) mg/dL Calcium 9.2 (8.4-10.2) mg/dL Discharge Plan Departure Patient Disposition: Admitted to Surgery Clinical Impression: Vaginal bleeding
[2021-05-01 15:37] LABS: Blood Urea Nitrogen 16 mg/dL (7-17); Calcium 9.2 mg/dL (8.4-10.2); Carbon Dioxide 25 mmol/L (22-32); Chloride 106 mmol/L (98-107); Estimated Glomerular Filt Rate > 60.0 mL/min (>60); Glucose 86 mg/dL (70-100); HEMOLYSIS < 15 (0-50); Sodium 139 mmol/L (137-145)
[2021-05-01 16:15] LABS: COVID19 - ADMIT (NP swab/PCR) Negative (Negative)
--- NOTE | 2021-05-01 16:52 | P.HPOB_ITS ---
History of Present Illness History of Present Illness Reason for admission: vaginal bleeding (Retained placenta fragment) Narrative: Alyson Kaiser is a 26 year old female admitted for hysteroscopy D&C for menorrhagia 6 weeks post with suggestion of retained placenta fragment [facility] Medical History Patient denies medical problems Surgical History History of appendectomy Social History marital status: unmarried,living together number of children: 2 household members: significant other and children lives independently: Yes caregiver/support person: No housing: house occupational status: employed Smoking Status: Current some day smoker alcohol intake: former substance use type: does not use Meds Home Medications and Allergies Allergies Allergy/AdvReac Type Severity Reaction Status Date / Time adhesive tape AdvReac Intermediate Hives Verified 05/01/21 14:47 Review of Systems Review of Systems Narrative: Patient has bleeding soaking through 2 super tampon every hour intermittently. The bleeding has been getting worse since her delivery on 03/15/2021. She has some mild cramping. No significant pain. No fevers. ROS: Yes All systems reviewed with the patient and are negative except as o therwise documented Exam Vital Signs (past 8 hours): - 05/01/21 14:43 05/01/21 16:32 Temperature 98.2 F 98.6 F Pulse Rate 86 55 L Respiratory Rate 16 16 Blood Pressure 111/70 115/70 Pulse Oximetry 100 99 Oxygen Delivery Method Room Air Narrative Exam Narrative: HEENT exam within normal limits. Lungs are clear to auscultation and percussion. Heart is regular rate and rhythm no S3-S4 murmurs. Abdomen is soft, no palpable organomegaly. She does have some tenderness suprapubically, no rebound. Pelvic exam deferred to exam under anesthesia. Extremities without edema and nontender. Objective Imaging US - abdomen: Radiologist's impression: Transvaginal ultrasound showed a hyperechoic mass in the fundus measuring 2.9 x 1.7 x 2.2 cm with overall endometrial thickness of 17.4 mm. Likely retained products of conception. Labs Result Diagrams: 05/01/21 15:15 05/01/21 15:15 Labs: Laboratory Results - last 24 hr 05/01/21 05/01/21 05/01/21 15:07 15:15 15:15 WBC 8.3 RBC 4.68 Hgb 11.6 L Hct 35.9 L MCV 76.6 L MCH 24.7 L MCHC 32.3 RDW 18.9 H Plt Count 301 Neut % (Auto) 59.8 Lymph % (Auto) 32.0 [place] % (Auto) 5.2 Eos % (Auto) 1.8 L Baso % (Auto) 1.2 Neut # (Auto) 5000 Lymph # (Auto) 2700 [place] # (Auto) 400 Eos # (Auto) 100 Baso # (Auto) 100 Sodium 139 Potassium 4.0 Chloride 106 Carbon Dioxide 25 BUN 16 Creatinine 0.80 Estimated GFR > 60.0 BUN/Creatinine Ratio 20.0 Glucose 86 Calcium 9.2 SARS-CoV-2 (PCR) Negative Blood Type Antibody Screen 05/01/21 15:15 WBC RBC Hgb Hct MCV MCH MCHC RDW Plt Count Neut % (Auto) Lymph % (Auto) [place] % (Auto) Eos % (Auto) Baso % (Auto) Neut # (Auto) Lymph # (Auto) [place] # (Auto) Eos # (Auto) Baso # (Auto) Sodium Potassium Chloride Carbon Dioxide BUN Creatinine Estimated GFR BUN/Creatinine Ratio Glucose Calcium SARS-CoV-2 (PCR) Blood Type O Positive Antibody Screen Negative Assessment & Plan Assessment and plan (1) Hemorrhage due to retained products of conception: Status: Acute Assessment & Plan narrative: Patient with hemorrhage 6 weeks with ultrasound suggestive of retained products of conception. Plan is for hysteroscopy D&C. Consent form was reviewed with the patient. Risk of perforation of the uterus that could result in damage to internal structures such as bowel, bladder, ureters that could result in additional surgery or opening the abdomen to repair. Risk of infection. Risk of reaction to medication or anesthesia. Possible continued bleeding after the procedure. Consent form signed and questions answered. Postop instructions reviewed with the patient.
--- NOTE | 2021-05-01 16:58 | PM.PREOP ---
Pre-operative Note COVID-19 COVID-19 status: Negative Result date/Date tested (Pos, Neg/Pending): 05/01/21 Interval Note History & Physical reviewed/Exam performed by Physician: Yes Changes to H&P: No
--- NOTE | 2021-05-01 17:25 | SUR.HOLD ---
Patient care in holding by Kelin Wallace RN
[2021-05-01] MEDS: LACTATED RINGERS 1,000 ML 42 ML IV (17:30)
--- NOTE | 2021-05-01 17:44 | SUR.OPER ---
Lithotomy on padded OR bed, head on pillow, arms secured on padded arm boards at <90 degrees abduction. Legs secured in padded yellow fins stirrups.
[2021-05-01] MEDS: CEFAZOLIN 1 GM VIAL 2 GM IV (18:10)
--- NOTE | 2021-05-01 18:39 | SUR.PHASEI ---
Pt received to PACU after general anesthesia. Airway patent, self maintained. Report received from Dr Meyer and RADHA Barber. Monitor noted with rhythm accelerated junctional. Dr Meyer aware of rate.
--- NOTE | 2021-05-01 18:47 | PM.OP.1 ---
Operative Date/Time/Diagnoses Date of procedure: 05/01/21 Time of procedure: 18:48 Pre-op diagnosis: 6 weeks with hemorrhage due to retained placental fragment Post-op diagnosis: same Procedure & Clinicians Procedure: Hysteroscopy D&C Same procedure as scheduled: Yes Indications: Patient bleeding heavily 6 weeks with ultrasound suggestive of retained placenta fragment Surgeon: Iveth Barrett Click Yes if Unassisted: Yes Anesthesia Type: General Operative Notes Findings: Retained placental fragments Closure Type: not applicable Specimen(s): other (Uterine contents) Estimated Blood Loss (mL): 30 Blood products transfused: none Procedure in detail: The patient was brought to the operating room where she underwent general anesthesia. She was placed in low stirrups She was prepped and draped in usual sterile fashion with pulsatile stockings in place and functional, warming in place, 2 g of Ancef were in prior to beginning the case. Her bladder was drained with in and out catheter. A single-tooth tenaculum was placed on the anterior lip of the cervix and the uterus dilated to #8 Hegar dilator. Tissue was grasped and removed with polyp forceps. Uterine curettings were performed. The hysteroscope was placed into the uterus with a sorbitol solution running and under constant suction. The resecting loop set at 80 W of cutting was used to resect tissue down to the level of the endometrium. A endometrial curettage was performed. A very large piece of tissue was removed with polyp forceps. The tissue was sent to pathology. The patient went to recovery room in good condition counts of instruments and sponges were correct. The sorbitol solution I=O approximately 4000 mL. Complications: none Post-operative Condition: stable Disposition: same day surgery Plan for aftercare: Home when awake and stable
== END 2021-05-01 19:10 | disposition home or self-care (01) ==
LOC: ED 15:58 → AC 16:40
PROVIDERS: Admitting Provider Specialist; Emergency Provider Emergency Medicine; Referring Provider Emergency Medicine; Visit Provider Specialist
PROC: 0UDB8ZZ Extraction of Endometrium, Via Natural or Artificial Opening Endoscopic (ICD-10-PCS; CPT 58558; principal; 2021-05-01 18:15)
DX: O72.2 Delayed and secondary postpartum hemorrhage (principal); F17.210 Nicotine dependence, cigarettes, uncomplicated; Z20.822 Contact with and (suspected) exposure to COVID-19
CPT/HCPCS: 58558; 36415; 59160; 80048; 81003; 81025; 85025; 86850; 86900; 86901; 87635; 96374; 99283; 99284; C9803; G0378; J0690; J1100; J2250; J2405; J2704; J3010